=== PATIENT | female | born 1985 | race Caucasian/White ===

== ENCOUNTER 2020-02-03 11:54 | Outpatient (CLI) | payer BC, SELFPAY ==
--- NOTE | ~2020-02-03 | XR_ITS ---
EXAMINATION: XR hip LT min 2V DATE: 02/03/2020 12:37 INDICATION: General left hip pain when walking TECHNIQUE: Anteroposterior and frog-leg lateral views of the left hip were obtained. COMPARISON: None. FINDINGS: Alignment is normal. No fracture or suspected avascular necrosis. There is decreased anterosuperior l eft femoral head neck offset. Mild osteoarthritis at the left hip with relatively preserved joint spa ce but with small marginal osteophytes about the femoral head. Soft tissues are unremarkable. IMPRESSION: 1. Mild left hip osteoarthritis and decreased femoral head neck offset which could predispose towards cam-type femoral acetabular impingement. Reviewed, dictated and finalized at location B. IMPRESSION: 1. Mild left hip osteoarthritis and decreased femoral head neck offset which co uld predispose towards cam-type femoral acetabular impingement.
== END 2020-02-03 11:55 | disposition home or self-care (01) ==
PROVIDERS: PCP Family Medicine; Visit Provider Obstetrics & Gynecology
DX: M25.559 Pain in unspecified hip (principal); M16.12 Unilateral primary osteoarthritis, left hip
CPT/HCPCS: 73502